=== PATIENT | male | born 1970 | race Caucasian/White ===

== ENCOUNTER 2022-09-03 10:30 | Outpatient (RCR) | payer OTHER, SELFPAY ==
[2022-06-03 14:08] LABS: Basophils Absolute Auto 0.05 K/uL (0.00-0.30); Basophils Percent Auto 0.8 % (0.0-3.0); Eosinophils Absolute Auto 0.01 K/uL (0.00-0.50); Eosinophils Percent Auto 0.2 % (0.0-7.0); Hematocrit 36.5 % (37.0-53.0); Hemoglobin* 11.7 gm/dL (13.5-17.5); Immature Granulocytes Abs Auto 0.74 K/uL (0.00-0.30); Lymphocytes Percent Auto 18.3 % (20-44); Mean Corpuscular HGB Conc 32 gm/dL (32-36); Mean Corpuscular Hemoglobin 29 pg (26-34); Mean Corpuscular Volume 90 fL (80-100); Monocytes Percent Auto 6.6 % (0.0-11.0); Neutrophils Absolute Auto 3.95 K/uL (1.7-7.0); Neutrophils Percent Auto 62.4 % (42.0-72.0); Platelet Count* 185 K/uL (140-440); RDW Coefficient of Variation % 15.1 % (11.5-15.5); Red Blood Count 4.04 m/uL (4.30-5.90); White Blood Count* 6.33 K/uL (4.50-11.00)
[2022-06-03 14:27] LABS: Albumin* 4.5 g/dL (3.3-5.0); Chloride* 101 mmol/L (96-114); Sodium* 138 mmol/L (135-149)
[2022-06-03 14:28] LABS: Potassium* 4.6 mmol/L (3.6-5.1)
[2022-06-03 14:30] LABS: Alkaline Phosphatase* 62 U/L (40-150); Aspartate Amino Transferase* 43 U/L (12-35); Bilirubin Total* 0.7 mg/dL (0.1-1.5); Blood Urea Nitrogen* 33 mg/dL (7-30); Carbon Dioxide* 30 mmol/L (20-32); Cholesterol* 132 mg/dL (90-199); Estimated Glomerular Filt Rate 91 ml/min; Glucose* 77 mg/dL (60-115); Total Protein* 6.8 g/dL (6.0-8.3); Triglycerides* 150 mg/dL (40-149)
[2022-06-03 14:31] LABS: Alanine Aminotransferase* 19 U/L (4-50); Calcium* 8.8 mg/dL (8.4-10.6); HDL Cholesterol* 28 mg/dL (>=40); LDL Cholesterol Calculated 74 mg/dL (<100); Slide Review Reflex Yes
[2022-06-03 14:34] LABS: Slide Review Acceptable Review (Acceptable)
[2022-06-03 14:37] LABS: Lactate Dehydrogenase* 1933 U/L (313-618)
--- NOTE | 2022-09-02 12:03 | ONC.NURNOTE ---
Judith- one month supply refill faxed to [facility] re-enrollment with 2022 RX to be signed by Dr Turner next week and then faxed in to [facility]
--- NOTE | 2022-09-03 08:15 | ONC.NURNOTE ---
Oncology referral: Patient is opting to stay with [facility] in [place] as he is currently seeing Dr. Eliel arambula in [facility]. Plan will be for patient to follow up with Dr. Turner in December following appointment with Dr. Julian.
[2022-09-03 08:41] LABS: Basophils Absolute Auto 0.08 K/uL (0.00-0.30); Basophils Percent Auto 1.1 % (0.0-3.0); Hematocrit 39.8 % (37.0-53.0); Hemoglobin* 12.8 gm/dL (13.5-17.5); Lymphocytes Percent Auto 13.5 % (20-44); Mean Corpuscular HGB Conc 32 gm/dL (32-36); Mean Corpuscular Hemoglobin 30 pg (26-34); Mean Corpuscular Volume 92 fL (80-100); Monocytes Percent Auto 6.4 % (0.0-11.0); Neutrophils Absolute Auto 5.01 K/uL (1.7-7.0); Platelet Count* 223 K/uL (140-440); RDW Coefficient of Variation % 15.1 % (11.5-15.5); Red Blood Count 4.33 m/uL (4.30-5.90); White Blood Count* 7.48 K/uL (4.50-11.00)
[2022-09-03 08:56] LABS: Albumin* 4.5 g/dL (3.3-5.0); Chloride* 103 mmol/L (96-114); Potassium* 4.5 mmol/L (3.6-5.1); Slide Review Reflex No; Sodium* 142 mmol/L (135-149)
[2022-09-03 08:58] LABS: Estimated Glomerular Filt Rate 91 ml/min
[2022-09-03 08:59] LABS: Alanine Aminotransferase* 24 U/L (4-50); Alkaline Phosphatase* 81 U/L (40-150); Aspartate Amino Transferase* 38 U/L (12-35); Bilirubin Total* 0.6 mg/dL (0.1-1.5); Blood Urea Nitrogen* 31 mg/dL (7-30); Carbon Dioxide* 35 mmol/L (20-32); Glucose* 100 mg/dL (60-115); Lactate Dehydrogenase* 666 U/L (120-246); Total Protein* 6.8 g/dL (6.0-8.3)
--- NOTE | 2022-09-03 13:53 | ONC.NURNOTE ---
Patient called for lab results, these were given. He was told no changes, and that Dr. Turner will look at levels and Sveta will call him next week if anything to update.
--- NOTE | 2022-09-12 10:20 | ONC.NURNOTE ---
Lab results reviewed by Dr Turner and called to Serafin discussed change in LDH lab parameters which is reflected in the dramatic decrease in LDH- it is still approx 2.5 times over the ULN next labs are due at [facility] with appt with BMT team in October
--- NOTE | 2022-09-12 10:26 | ONC.NURNOTE ---
Addendum entered by Sveta Lucero RN 10/02/22 10:43: Per [employer]- 2 pages missing from application, including Serafin's information. Serafin was contacted and emailed his portion to this technical publications writer. Entire application refaxed today, including copy of insurance cards and 4 page application Aliza Mata- [employer] phoned this clinic in follow up She will check that application is complete and contact this office is any further information is needed [phone] Aliza's phone # Original Note: [employer] application renewal for Judith was faxed in by this office patient still needs to submit his [id number]
--- NOTE | 2022-10-17 09:16 | ONC.NURNOTE ---
NATASHA Wong Approval thru 10/16/2023 NATASHA # [id number]
--- NOTE | 2022-10-22 15:31 | ONC.NURNOTE ---
Addendum entered by Sveta Lucero RN 10/24/22 07:52: Per [employer] insurance verification Serafin has 100% coverage of Jakafi after he has met his $5400 out of pocket max the copay card will cover the copay until his max is reached needs to fill his Jakafi at [facility], insurance cards and PA faxed to [facility] yesterday pm [phone] Original Note: Jakafi Copay Card ID# [id number] [facility] # [id number] [facility] [id number] Re-enrollment into [employer] is pending from what underwriter understands as was explained by [employer] Serafin is to use his copay card which covers up to $[id number] when the card is exhausted then he will either receive a 2nd card or will/can be enrollend in [employer] PAP Application for [employer] has been faxed and received in September- confirmed with [employer] Rep Serafin instructed to contact [facility] (Serafin uses this pharmacy- ?maybe assoc with [employer]?) and make sure that they have his copay card info and have then run the RX through to confirm that his copay is covered with the noted copay card
--- NOTE | 2022-10-31 12:08 | ONC.NURNOTE ---
Copay confirmed to be about $9000 for first Jakafi fill at [facility] with copay card- patient will have $0 out of pocket costs this was emailed to Serafin, with request for confirmation of information received and understood
--- NOTE | 2022-11-04 11:03 | ONC.NURNOTE ---
[facility] called this office- (Madie) they have been unable to reach Serafin email sent to Serafin with phone # [email or web address] to contact Agnieszka
== END 2022-11-30 23:59 | disposition home or self-care (01) ==
LOC: CCIC 10:30
PROVIDERS: Clinical Nurse Specialist; PCP Family Medicine; Referring Provider Family Medicine; Visit Provider Internal Medicine Hematology & Oncology
DX: D47.1 Chronic myeloproliferative disease (principal); D75.81 Myelofibrosis
CPT/HCPCS: 36415; 80053; 80061; 83615; 85025

== ENCOUNTER 2023-05-28 07:31 | Outpatient (CLI) | payer OTHER, SELFPAY ==
--- NOTE | 2023-05-28 08:00 | CRLHL7_ITS ---
For Patients: As a result of the Century Cures Act, medical imaging exams and procedure reports are released immediately into your electronic medical record. You may view this report before your referring provider. If you have questions, please contact your health care provider. Indication: CHRONIC MYELOPROLIFERATIVE DISEASE, MYELOFIBROSIS, NEW FATIGUE, DISTEND ABD Technique: CT CAP WITH 92CC ISOVUE 370 Please note that all CT scans at this facility use dose modulation, iterative reconstruction, and/or weight-based dosing when appropriate to reduce radiation dose to as low as reasonably achievable. Comparison: 02/18/2022, 07/05/2021, 02/15/2021 Findings: In the chest, no adenopathy is present. No pleural effusion or pericardial effusion. No infiltrate or edema. No pneumothorax. Tiny nodules in the left lung are present, unchanged. No suspicious nodule or mass. Similar mottled appearance of the skeletal system without pathologic fracture. In the abdomen, splenomegaly is again noted which measures 21.8 cm, increased in size compared to the most recent study. No intrahepatic masses. No hepatomegaly. The adrenal glands are normal. Displacement of the left kidney noted. No hydronephrosis. The pancreas is normal. Normal gallbladder. No enlarged lymph nodes. No bowel obstruction. Stable soft tissue nodule along the right abdominal wall. In the pelvis, no enlarged lymph nodes are present. The bladder is normal. No pelvic soft tissue mass. Stable appearance of the osseous structures. Impression: Splenomegaly which has increased slightly in size. No enlarged lymph nodes. Similar appearance of the osseous structures with mottled appearance and areas of lucency within several vertebral bodies. No pathologic fracture. Please note that all CT scans at this facility use dose modulation, iterative reconstruction, and/or weight-based dosing when appropriate to reduce radiation dose to as low as reasonably achievable. Dictated by Jose Davalos MD @ 05/29/2023 1:11:45 PM (Electronically Signed)
== END 2023-05-28 07:32 | disposition home or self-care (01) ==
LOC: CT 07:31
PROVIDERS: PCP Family Medicine; Visit Provider Internal Medicine Hematology & Oncology
DX: D47.1 Chronic myeloproliferative disease (principal); R53.83 Other fatigue; R16.1 Splenomegaly, not elsewhere classified
CPT/HCPCS: 71260; 74177; Q9967

== ENCOUNTER 2023-06-22 08:14 | Outpatient (RCR) | payer OTHER, SELFPAY ==
--- NOTE | 2022-12-04 09:18 | ONC.NURNOTE ---
Per [email or web address]: Serafin enrolled for Jakafi at no cost 11/28/22-11/28/23 He will not need the copay card because his copay will exceed the value of the copay card RX canceled with [facility] Jakafi to be filled at [facility] through [email or web address] Serafin understands this change
--- NOTE | 2022-12-18 16:56 | ONC.NURNOTE ---
Addendum entered by Sveta Lucero RN 12/25/22 12:11: POI received by [employer] Original Note: Proof of Income faxed to [employer] per their request [phone] faxed to [phone]
[2023-01-29 08:37] LABS: Basophils Absolute Auto 0.07 K/uL (0.00-0.30); Eosinophils Absolute Auto 0.01 K/uL (0.00-0.50); Eosinophils Percent Auto 0.1 % (0.0-7.0); Hematocrit 40.5 % (37.0-53.0); Hemoglobin* 13.2 gm/dL (13.5-17.5); Immature Granulocytes Abs Auto 1.17 K/uL (0.00-0.30); Immature Granulocytes Pct Auto 16.5 %; Lymphocytes Percent Auto 15.8 % (20-44); Mean Corpuscular HGB Conc 33 gm/dL (32-36); Mean Corpuscular Hemoglobin 29 pg (26-34); Mean Corpuscular Volume 90 fL (80-100); Monocytes Percent Auto 7.2 % (0.0-11.0); Neutrophils Absolute Auto 4.19 K/uL (1.7-7.0); Neutrophils Percent Auto 59.4 % (42.0-72.0); Platelet Count* 174 K/uL (140-440); RDW Coefficient of Variation % 14.9 % (11.5-15.5); White Blood Count* 7.07 K/uL (4.50-11.00)
[2023-01-29 08:57] LABS: Slide Review Reflex Yes
[2023-01-29 08:58] LABS: Chloride* 101 mmol/L (96-114); Sodium* 140 mmol/L (135-149)
[2023-01-29 08:59] LABS: Albumin* 4.5 g/dL (3.3-5.0); Potassium* 4.4 mmol/L (3.6-5.1)
[2023-01-29 09:01] LABS: Carbon Dioxide* 35 mmol/L (20-32); Estimated Glomerular Filt Rate 91 ml/min
[2023-01-29 09:02] LABS: Alanine Aminotransferase* 25 U/L (4-50); Alkaline Phosphatase* 54 U/L (40-150); Aspartate Amino Transferase* 38 U/L (12-35); Blood Urea Nitrogen* 25 mg/dL (7-30); Calcium* 9.1 mg/dL (8.4-10.6); Glucose* 108 mg/dL (60-115); Lactate Dehydrogenase* 697 U/L (120-246)
[2023-01-29 09:49] LABS: Slide Review Acceptable Review (Acceptable)
[2023-05-11 12:24] LABS: Eosinophils Percent Auto 0.2 % (0.0-7.0); Hematocrit 38.4 % (37.0-53.0); Hemoglobin* 12.4 gm/dL (13.5-17.5); Lymphocytes Percent Auto 14.5 % (20-44); Mean Corpuscular HGB Conc 32 gm/dL (32-36); Mean Corpuscular Hemoglobin 29 pg (26-34); Mean Corpuscular Volume 91 fL (80-100); Monocytes Percent Auto 8.2 % (0.0-11.0); Neutrophils Percent Auto 61.2 % (42.0-72.0); Platelet Count* 181 K/uL (140-440); RDW Coefficient of Variation % 15.2 % (11.5-15.5); Red Blood Count 4.23 m/uL (4.30-5.90); White Blood Count* 5.24 K/uL (4.50-11.00)
[2023-05-11 12:25] LABS: Basophils Absolute Auto 0.05 K/uL (0.00-0.30); Eosinophils Absolute Auto 0.01 K/uL (0.00-0.50); Immature Granulocytes Abs Auto 0.78 K/uL (0.00-0.30); Immature Granulocytes Pct Auto 14.9 %; Neutrophils Absolute Auto 3.21 K/uL (1.7-7.0)
[2023-05-11 12:40] LABS: Chloride* 104 mmol/L (96-114)
[2023-05-11 12:41] LABS: Albumin* 4.4 g/dL (3.3-5.0); Potassium* 3.9 mmol/L (3.6-5.1); Sodium* 139 mmol/L (135-149)
[2023-05-11 12:44] LABS: Alanine Aminotransferase* 28 U/L (4-50); Alkaline Phosphatase* 55 U/L (40-150); Aspartate Amino Transferase* 43 U/L (12-35); Bilirubin Total* 0.7 mg/dL (0.1-1.5); Blood Urea Nitrogen* 25 mg/dL (7-30); Carbon Dioxide* 32 mmol/L (20-32); Creatinine* 0.9 mg/dL (0.5-1.5); Estimated Glomerular Filt Rate 103 ml/min; Glucose* 85 mg/dL (60-115); Lactate Dehydrogenase* 619 U/L (120-246); Total Protein* 6.7 g/dL (6.0-8.3)
[2023-05-11 13:07] LABS: Slide Review Reflex Yes
[2023-05-11 13:08] LABS: Slide Review Acceptable Review (Acceptable)
[2023-05-11 16:03] LABS: Cholesterol* 139 mg/dL (90-199); Triglycerides* 126 mg/dL (40-149)
[2023-05-11 16:04] LABS: HDL Cholesterol* 30 mg/dL (>=40); LDL Cholesterol Calculated 84 mg/dL (<100)
--- NOTE | 2023-05-11 16:12 | PC.NURSE ---
Pt called asking to change his PET scan schedule. Called PET scheduling and moved test to , 05/28/2023 at 2:45 PM. Pt verbalized understanding. Check in at 2:30 PM.
--- NOTE | 2023-05-14 13:39 | ONC.NURNOTE ---
[facility] called to say they need a new code. List of possible codes attached.
== END 2023-07-28 23:59 | disposition home or self-care (01) ==
LOC: CCIC 08:14
PROVIDERS: PCP Family Medicine; Visit Provider Internal Medicine Hematology & Oncology
DX: D47.1 Chronic myeloproliferative disease (principal); D75.81 Myelofibrosis
CPT/HCPCS: 36415; 80053; 80061; 83615; 85025; 99212; 99213; 99214

== ENCOUNTER 2023-12-10 06:48 | Day surgery (SDC) | payer OTHER, SELFPAY ==
[2023-12-10] VITALS (12 sets, daily range): BP systolic 112–140; BP diastolic 76–94; PULSE 45–82; RESP 14–16; TEMP 36.5–36.8; O2SAT 93–100; BMI 23.1
[2023-12-10] MEDS: LACTATED RINGERS 1000 ML 1,000 ML 100 ML IV (07:43)
[2023-12-10] MEDS: SODIUM CHLORIDE 0.9 % (FLUSH) 10 ML SYRINGE IVF (07:43)
--- NOTE | 2023-12-10 08:19 | PM.GSPRC ---
Operative Note Date of procedure: 12/10/23 Pre-op diagnosis: 1. Left inguinal hernia 2. Umbilical hernia Post-op diagnosis: Same Type of Procedure: 1. Laparoscopic left inguinal hernia repair with mesh 2. Open 1 cm umbilical hernia repair, primary repair Indications: The patient is a 53-year-old male with a symptomatic left inguinal hernia. He was noted to also have an umbilical hernia. After discussion of options he elected to proceed with repair. Procedure Description: After discussing the risks and benefits of the procedure, the patient signed informed consent.? The operative site was marked and the patient was brought to the operating room and placed on the operating table in supine position.? Care was taken to pad the patient's pressure points.?? The patient was then intubated by anesthesia.?? The operative site was then prepped and draped in the usual sterile fashion.? A time-out was then performed. A curvilinear incision was made below the umbilicus. Dissection was carried down to subcutaneous tissue until the anterior rectus fascia was encountered. This was incised off the midline on the left. The rectus muscle fibers were then retracted exposing the posterior fascia. A port with a dissecting balloon was then introduced into the pre-preperitoneal space. This was inflated under direct vision. The balloon was deflated, removed, and a 10 mm working port was placed. The space was insufflated and a 10 mm 30-degree scope was then advanced into the space. Two 5 mm ports were placed in the midline under direct vision. Dissection began on the left side. Juan Luis's ligament and the pubic bone were exposed medially. Following this, dissection was carried out laterally. An indirect defect was noted. The sac was dissected free from the cord structures using a combination of sharp and blunt dissection. Once the sac was completely reduced, a piece of Bard 3DMax mesh for the appropriate side was placed into the abdomen. This was positioned with the marker pointed medially. A Tacker was used to attach the mesh medially at Juan Luis's ligament and 1 tack laterally with care to avoid the epigastric vessels and stay above the inguinal ligament. Once this was completed the sac was placed on top of the mesh and the preperitoneal space desufflated under direct vision to ensure the mesh laid flat. 10 mL of 0.5% Marcaine were instilled into the preperitoneal space through a port. The ports were removed. Attention was turned to the hernia repair. The umbilical stalk was then dissected free from the hernia sac. The fascial edges were examined. The defect measured 1 cm. Therefore the decision was made to close this with suture. 0 Nurolon suture was used to close the defect in a vest over pants fashion. The anterior fascia from the port site on the left was closed with 0 Nurolon stitch interrupted sutures as well. Umbilicus was then tacked to the fascia using 3-0 Vicryl. The umbilical incision was closed with 3-0 Vicryl dermal and 4-0 Monocryl running subcuticular suture. The port sites were closed with 4-0 Monocryl subcuticular suture. Glue was then applied. The scrotum was examined to ensure that both testicles were down. Instrument sponge and needle counts were correct at the end of the case. ? The patient was then woken and transported to the recovery area in stable condition. ? The patient tolerated the procedure well. Findings: Indirect inguinal hernia on the left. Small fat containing umbilical hernia noted measuring 1 cm. Anesthesia: GETA Surgeon: Florinda Samuel MD Estimated blood loss (mL): 5 Condition: stable Disposition: PACU
[2023-12-10] MEDS: CEFAZOLIN 2 GM INJ IVP (08:23)
[2023-12-10] MEDS: BUPIVACAINE 0.25% 30 ML INJECTION (09:30)
--- NOTE | 2023-12-10 09:47 | W.ANESCHARGE ---
Anesthesia Charges Start Date/Time Anesthesia Start Date: 12/10/23 Anesthesia Start Time: 08:11 Stop Date/Time Anesthesia Stop Date: 12/10/23 Anesthesia Stop Time: 09:39
== END 2023-12-10 11:53 | disposition home or self-care (01) ==
PROVIDERS: PCP Family Medicine; Visit Provider Surgery
PROC: (CPT 49650; principal; 2023-12-10 08:00)
DX: K40.90 Unilateral inguinal hernia, without obstruction or gangrene, not specified as recurrent (principal); K42.9 Umbilical hernia without obstruction or gangrene
CPT/HCPCS: 49650; 49591; 00860; C1781; J0330; J0665; J0690; J1100; J1885; J2405; J2704; J3010; J3490; J7120

== ENCOUNTER 2024-02-10 09:30 | Outpatient (RCR) | payer OTHER, SELFPAY ==
--- NOTE | 2023-08-24 08:50 | ONC.NURNOTE ---
Serafin called on 08/24/2023 stating that he had seen Dr. Aviles from [facility] in July. He was originally scheduled for September 23 for his 3 month follow up appointment, but wanted to move the September appointment to October since he had just seen Dr. Aviles. His appointment is now going to be on October 27 at 10:00 a.m.
--- NOTE | 2023-08-26 11:33 | ONC.NURNOTE ---
Patient phoned in today- patient will let Pharmacy Know that his Jakafi continues to be on hold- Recently saw Dr Julian at [facility]
[2023-11-09 18:37] LABS: Albumin* 4.5 g/dL (3.3-5.0); Chloride* 100 mmol/L (96-114)
[2023-11-09 18:38] LABS: Potassium* 4.3 mmol/L (3.6-5.1); Sodium* 140 mmol/L (135-149)
[2023-11-09 18:40] LABS: Alkaline Phosphatase* 61 U/L (40-150); Anion Gap 7 mEq/L (7-15); Aspartate Amino Transferase* 33 U/L (12-35); Bilirubin Total* 0.7 mg/dL (0.1-1.5); Blood Urea Nitrogen* 27 mg/dL (7-30); Carbon Dioxide* 33 mmol/L (20-32); Creatinine* 0.9 mg/dL (0.5-1.5); Estimated Glomerular Filt Rate 102 ml/min; Total Protein* 6.9 g/dL (6.0-8.3)
[2023-11-09 18:41] LABS: Alanine Aminotransferase* 21 U/L (4-50); Glucose* 93 mg/dL (60-115); Lactate Dehydrogenase* 503 U/L (120-246)
[2023-11-09 19:29] LABS: Basophils Percent Auto 0.8 % (0.0-3.0); Eosinophils Percent Auto 0.2 % (0.0-7.0); Hematocrit 42.1 % (37.0-53.0); Hemoglobin* 13.1 gm/dL (13.5-17.5); Immature Granulocytes Pct Auto 9.3 %; Lymphocytes Percent Auto 13.2 % (20-44); Mean Corpuscular HGB Conc 31 gm/dL (32-36); Mean Corpuscular Hemoglobin 28 pg (26-34); Mean Corpuscular Volume 89 fL (80-100); Monocytes Percent Auto 6.8 % (0.0-11.0); Neutrophils Percent Auto 69.7 % (42.0-72.0); Platelet Count* 246 K/uL (140-440); RDW Coefficient of Variation % 16.4 % (11.5-15.5); Red Blood Count 4.74 m/uL (4.30-5.90)
[2023-11-09 20:03] LABS: Slide Review Reflex Yes
[2024-02-09 19:10] LABS: Basophils Absolute Auto 0.05 K/uL (0.00-0.30); Basophils Percent Auto 0.8 % (0.0-3.0); Eosinophils Absolute Auto 0.02 K/uL (0.00-0.50); Eosinophils Percent Auto 0.3 % (0.0-7.0); Hematocrit 41.9 % (37.0-53.0); Hemoglobin* 13.5 gm/dL (13.5-17.5); Immature Granulocytes Abs Auto 0.63 K/uL (0.00-0.30); Immature Granulocytes Pct Auto 10.6 %; Lymphocytes Percent Auto 13.4 % (20-44); Mean Corpuscular HGB Conc 32 gm/dL (32-36); Mean Corpuscular Hemoglobin 28 pg (26-34); Mean Corpuscular Volume 88 fL (80-100); Neutrophils Absolute Auto 4.11 K/uL (1.7-7.0); Neutrophils Percent Auto 68.9 % (42.0-72.0); Platelet Count* 232 K/uL (140-440); RDW Coefficient of Variation % 15.4 % (11.5-15.5); Red Blood Count 4.79 m/uL (4.30-5.90); White Blood Count* 5.97 K/uL (4.50-11.00)
[2024-02-09 19:20] LABS: Chloride* 98 mmol/L (96-114)
[2024-02-09 19:21] LABS: Albumin* 4.4 g/dL (3.3-5.0); Sodium* 139 mmol/L (135-149)
[2024-02-09 19:22] LABS: Potassium* 4.3 mmol/L (3.6-5.1)
[2024-02-09 19:24] LABS: Alanine Aminotransferase* 24 U/L (4-50); Alkaline Phosphatase* 70 U/L (40-150); Anion Gap 8 mEq/L (7-15); Aspartate Amino Transferase* 53 U/L (12-35); Bilirubin Total* 0.7 mg/dL (0.1-1.5); Blood Urea Nitrogen* 29 mg/dL (7-30); Carbon Dioxide* 33 mmol/L (20-32); Creatinine* 0.9 mg/dL (0.5-1.5); Estimated Glomerular Filt Rate 102 ml/min; Glucose* 92 mg/dL (60-115); Lactate Dehydrogenase* 490 U/L (120-246); Total Protein* 6.6 g/dL (6.0-8.3)
[2024-02-09 19:46] LABS: Slide Review Reflex Yes
[2024-02-09 19:49] LABS: Slide Review Acceptable Review (Acceptable)
== END 2024-05-07 23:59 | disposition home or self-care (01) ==
LOC: CCIC 09:30
PROVIDERS: PCP Family Medicine; Referring Provider Family Medicine; Visit Provider Internal Medicine Hematology & Oncology
DX: D47.1 Chronic myeloproliferative disease (principal); D75.81 Myelofibrosis
CPT/HCPCS: 36415; 80053; 83615; 85025; 99213; 99214; G0463

== ENCOUNTER 2024-05-25 08:35 | Outpatient (RCR) | payer OTHER, SELFPAY ==
[2024-05-25 08:57] LABS: Basophils Absolute Auto 0.05 K/uL (0.00-0.30); Basophils Percent Auto 0.9 % (0.0-3.0); Eosinophils Absolute Auto 0.02 K/uL (0.00-0.50); Eosinophils Percent Auto 0.4 % (0.0-7.0); Hematocrit 44.2 % (37.0-53.0); Hemoglobin* 13.9 gm/dL (13.5-17.5); Immature Granulocytes Abs Auto 0.53 K/uL (0.00-0.30); Immature Granulocytes Pct Auto 9.8 %; Lymphocytes Percent Auto 12.3 % (20-44); Mean Corpuscular HGB Conc 31 gm/dL (32-36); Mean Corpuscular Hemoglobin 28 pg (26-34); Mean Corpuscular Volume 89 fL (80-100); Monocytes Percent Auto 6.4 % (0.0-11.0); Neutrophils Absolute Auto 3.81 K/uL (1.7-7.0); Neutrophils Percent Auto 70.2 % (42.0-72.0); Platelet Count* 221 K/uL (140-440); RDW Coefficient of Variation % 15.6 % (11.5-15.5); Red Blood Count 4.97 m/uL (4.30-5.90); White Blood Count* 5.43 K/uL (4.50-11.00)
[2024-05-25 09:02] LABS: Slide Review Reflex No
[2024-05-25 09:12] LABS: Albumin* 4.5 g/dL (3.3-5.0); Chloride* 100 mmol/L (96-114); Potassium* 4.2 mmol/L (3.6-5.1); Sodium* 139 mmol/L (135-149)
[2024-05-25 09:15] LABS: Alanine Aminotransferase* 31 U/L (4-50); Alkaline Phosphatase* 67 U/L (40-150); Anion Gap 4 mEq/L (7-15); Aspartate Amino Transferase* 43 U/L (12-35); Bilirubin Total* 0.8 mg/dL (0.1-1.5); Blood Urea Nitrogen* 19 mg/dL (7-30); Carbon Dioxide* 35 mmol/L (20-32); Estimated Glomerular Filt Rate 90 ml/min; Glucose* 111 mg/dL (60-115); Lactate Dehydrogenase* 532 U/L (120-246); Total Protein* 6.7 g/dL (6.0-8.3)
[2024-05-25 09:16] LABS: Calcium* 9.3 mg/dL (8.4-10.6)
--- NOTE | 2024-08-24 11:48 | ONC.NURNOTE ---
Labs done in July at [facility] at [facility] appt with Dr Julian next lab scheduled in Nov prior to follow up with Dr Turner
== END 2024-11-21 23:59 | disposition home or self-care (01) ==
LOC: CCIC 08:35
PROVIDERS: PCP Family Medicine; Referring Provider Family Medicine; Visit Provider Internal Medicine Hematology & Oncology
DX: D47.1 Chronic myeloproliferative disease (principal); D75.81 Myelofibrosis
CPT/HCPCS: 36415; 80053; 83615; 85025; 99213; 99214; G0463

== ENCOUNTER 2025-05-23 10:30 | Outpatient (RCR) | payer OTHER, SELFPAY ==
[2024-12-06 18:53] LABS: Hematocrit 40.1 % (37.0-53.0); Hemoglobin* 12.6 gm/dL (13.5-17.5); Immature Granulocytes Abs Auto 0.55 K/uL (0.00-0.30); Immature Granulocytes Pct Auto 11.3 %; Lymphocytes Absolute Auto 0.70 K/uL (0.90-2.90); Mean Corpuscular HGB Conc 31 gm/dL (32-36); Mean Corpuscular Hemoglobin 28 pg (26-34); Mean Corpuscular Volume 89 fL (80-100); RDW Coefficient of Variation % 15.3 % (11.5-15.5); Red Blood Count 4.51 m/uL (4.30-5.90); Slide Review Reflex No; White Blood Count* 4.87 K/uL (4.50-11.00)
[2024-12-06 19:02] LABS: Albumin* 4.3 g/dL (3.3-5.0)
[2024-12-06 19:03] LABS: Chloride* 99 mmol/L (96-114); Potassium* 4.5 mmol/L (3.6-5.1); Sodium* 137 mmol/L (135-149)
[2024-12-06 19:05] LABS: Alkaline Phosphatase* 69 U/L (40-150); Anion Gap 5 mEq/L (7-15); Aspartate Amino Transferase* 32 U/L (12-35); Bilirubin Total* 0.8 mg/dL (0.1-1.5); Blood Urea Nitrogen* 33 mg/dL (7-30); Carbon Dioxide* 33 mmol/L (20-32); Creatinine* 1.1 mg/dL (0.5-1.5); Estimated Glomerular Filt Rate 80 ml/min; Glucose* 93 mg/dL (60-115); Total Protein* 6.1 g/dL (6.0-8.3)
[2024-12-06 19:06] LABS: Alanine Aminotransferase* 20 U/L (4-50); Calcium* 8.8 mg/dL (8.4-10.6)
--- NOTE | 2025-03-15 12:56 | ONC.NURNOTE ---
reminder call message left on voice mail due to Q 3 mth labs and can also schedule his 6 month follow up with Dr Turner- mari in
--- NOTE | 2025-04-03 08:51 | ONC.NURNOTE ---
Labs were due end of February message left on Voicemail to call [facility] to schedule lab follow due in May/Jun with lab- will schedule those appts as well
[2025-05-23 10:47] LABS: Hematocrit 41.3 % (37.0-53.0); Hemoglobin* 13.2 gm/dL (13.5-17.5); Immature Granulocytes Abs Auto 0.49 K/uL (0.00-0.30); Immature Granulocytes Pct Auto 9.9 %; Mean Corpuscular HGB Conc 32 gm/dL (32-36); Mean Corpuscular Hemoglobin 28 pg (26-34); Mean Corpuscular Volume 88 fL (80-100); RDW Coefficient of Variation % 15.4 % (11.5-15.5); Red Blood Count 4.69 m/uL (4.30-5.90); White Blood Count* 4.95 K/uL (4.50-11.00)
[2025-05-23 10:51] LABS: Lymphocytes Absolute Auto 0.70 K/uL (0.90-2.90); Slide Review Reflex No
[2025-05-23 11:00] LABS: Albumin* 4.1 g/dL (3.3-5.0); Chloride* 99 mmol/L (96-114); Sodium* 139 mmol/L (135-149)
[2025-05-23 11:01] LABS: Potassium* 4.2 mmol/L (3.6-5.1)
[2025-05-23 11:03] LABS: Alanine Aminotransferase* 19 U/L (4-50); Alkaline Phosphatase* 66 U/L (40-150); Anion Gap 4 mEq/L (7-15); Aspartate Amino Transferase* 39 U/L (12-35); Bilirubin Total* 0.9 mg/dL (0.1-1.5); Blood Urea Nitrogen* 24 mg/dL (7-30); Calcium* 9.1 mg/dL (8.4-10.6); Carbon Dioxide* 36 mmol/L (20-32); Creatinine* 1.0 mg/dL (0.5-1.5); Est. Creatinine Clearance* 96.99; Estimated Glomerular Filt Rate 89 ml/min; Glucose* 78 mg/dL (60-115); Total Protein* 6.3 g/dL (6.0-8.3)
== END 2025-06-05 23:59 | disposition home or self-care (01) ==
LOC: CCIC 10:30
PROVIDERS: PCP Family Medicine; Referring Provider Family Medicine; Visit Provider Internal Medicine Hematology & Oncology
DX: D47.1 Chronic myeloproliferative disease (principal); R16.1 Splenomegaly, not elsewhere classified; R74.02 Elevation of levels of lactic acid dehydrogenase [LDH]; K40.90 Unilateral inguinal hernia, without obstruction or gangrene, not specified as recurrent
CPT/HCPCS: 36415; 80053; 83615; 85025; 99213; 99214; G0463